=== PATIENT | female | born 1965 | race Caucasian/White ===

== ENCOUNTER 2018-10-12 05:58 | Emergency (ER) | payer OTHER ==
[2018-10-12] MEDS: ACETAMINOPHEN 325 MG TAB PO (06:25)
[2018-10-12] MEDS: GUAIFENESIN/DM 5ML CUP PO (06:27)
[2018-10-12] MEDS: IBUPROFEN 800 MG TAB PO (07:19)
== END 2018-10-12 08:22 | disposition home or self-care (01) ==
LOC: FTE 05:58
DX: J06.9 Acute upper respiratory infection, unspecified (principal)
CPT/HCPCS: 71046; 87400; 99284-25

== ENCOUNTER 2019-04-05 06:00 | Emergency (ER) | payer OTHER ==
[2019-04-05] MEDS: FAMOTIDINE 20 MG TAB PO (07:09)
[2019-04-05] MEDS: HYDROCODONE/APAP (5/325) TAB PO (07:09)
[2019-04-05] MEDS: KETOROLAC 30 MG INJ IM (07:33)
== END 2019-04-05 07:55 | disposition home or self-care (01) ==
LOC: FTE 06:00
DX: M17.12 Unilateral primary osteoarthritis, left knee (principal)
CPT/HCPCS: 81025; 96372; 99284-25